=== PATIENT | male | born 1955 | race Caucasian/White ===

== ENCOUNTER 2019-09-15 01:20 | Emergency (ER) | payer SELFPAY ==
[~2019-09-15] VITALS: Ht 172.7 cm; Wt 61.2 kg
[2019-09-15 01:30] VITALS: BP 113/64
--- NOTE | 2019-09-15 01:42 | NUR ---
63 Y/O MALE BIBA ALS S/P SYNCOPE EPSIODE. PT STATES HE WAS SITTING ON THE COUCH AND HIS "EYES ROLLED BACK IN HIS HEAD". PER EMS NO LOC. PT DENIES PAIN. PT STATES HE FELT LIKE HE NEEDED TO HAVE A BOWEL MOVEMENT S/P SYNCOPE EPISODE. RR EVEN AND UNLABORED. PT PLACED ON MONITOR. 18G IV PLACED TO LT AC BY EMS, 200ML NS GIVEN IN ROUTE, CONTINUE BOLUS OF LITER PER DR HUBBARD. PT SITTING UPRIGHT IN BED CALM AND PLEASANT. VSS. MEDHX: DENIES ALLERGIES: NKA
[2019-09-15 01:47] LABS: BASOPHILS # (AUTO) 0.1 K/uL (0.00-0.22); BASOPHILS % (AUTO) 0.5 % (0.0-2.0); EOSINOPHILS # (AUTO) 0.3 K/uL (0-0.4); EOSINOPHILS % (AUTO) 3.1 % (0.0-4.0); HEMOGLOBIN 12.2 g/dL (12.0-18.0); LYMPHOCYTES # (AUTO) 3.8 K/uL (2.0-11.5); LYMPHOCYTES % (AUTO) 39.2 % (20.5-51.1); MEAN CORPUSCULAR HEMOGLOBIN 30 pg (27-31); MEAN CORPUSCULAR HGB CONC 33 g/dL (33-37); MEAN CORPUSCULAR VOLUME 90.9 fL (80-94); MONOCYTES % (AUTO) 10.3 % (1.7-9.3); NEUTROPHILS # (AUTO) 4.5 K/uL (1.8-7.7); NEUTROPHILS % (AUTO) 46.9 % (42.2-75.2); PLATELET COUNT (AUTO) 333 K/uL (140-450); RED BLOOD CELL COUNT(AUTO) 4.07 MIL/uL (4.20-6.10); RED CELL DISTRIBUTION WIDTH 15.6 % (11.6-13.7); WHITE BLOOD COUNT (AUTO) 9.6 K/uL (4.8-10.8)
--- NOTE | 2019-09-15 01:47 | NUR ---
DR HUBBARD AT BEDSIDE PERFORMING ULTRASOUND
[2019-09-15 02:12] LABS: ANION GAP 14.2 (8-16); CARBON DIOXIDE 26.8 mmol/L (21-32); CREATININE 0.9 mg/dL (0.7-1.3)
--- NOTE | 2019-09-15 02:12 | NUR ---
PT STATES HE IS UNABLE TO PROVIDE URINE AT THIS TIME, WATER GIVEN TO PT AND STATES HE WILL TRY AGAIN
[2019-09-15 02:56] LABS: BARBITURATE, URINE NEG. ng/ml (NEG <=200); BENZODIAZEPINE, URINE NEG. ng/mL (NEG <=200); CANNABINOID, URINE POS. ng/mL (NEG <=50); COCAINE, URINE NEG. ng/mL (NEG <=300); OPIATE, URINE NEG. ng/mL (NEG <=2000); PHENCYCLIDINE SCREEN,URINE NEG. ng/mL (NEG <=25)
--- NOTE | 2019-09-15 03:00 | NUR ---
PT STATES HE DOES NOT FEEL FAINT AT THIS TIME. RR EVEN AND UNLABORED. PT REMAINS ON THE MONITOR
[2019-09-15 03:15] VITALS: BP 113/64
--- NOTE | 2019-09-15 03:16 | NUR ---
Patient discharged with v/s stable. Written and verbal after care instructions given and explained. Patient verbalized understanding. Ambulatory with steady gait. All questions addressed prior to discharge. Advised to follow up with PMD.
== END 2019-09-15 03:15 | disposition home or self-care (01) ==
LOC: MED 01:20
DX: R55 Syncope and collapse (principal); F12.10 Cannabis abuse, uncomplicated; F10.10 Alcohol abuse, uncomplicated
CPT/HCPCS: 36415; 71045; 80048; 80305; 83880; 84484; 85025; 93005; 99284; G0482; Q0092